=== PATIENT | female | born 1985 ===

== ENCOUNTER 2017-01-09 16:19 | Emergency (ER) | payer MEDICAID ==
[2017-01-09 16:35] VITALS: RESP 18
--- NOTE | 2017-01-09 18:05 | C.PDOC ---
History Of Present Illness 31 year old female presents to the ED with complaints of vaginal bleeding and lower abdominal pain since this morning that have reduced upon arrival to ED. Patient's LMP was 11/01/2016 and notes questionable care. She has used two pads today and denies back pain, fever dysuria, nausea, vomiting, or other complaints at this time. Time Seen by Provider: 01/09/17 17:16 Chief Complaint (Nursing): Female Genitourinary History Per: Patient History/Exam Limitations: no limitations Onset/Duration Of Symptoms: Hrs Current Symptoms Are (Timing): Still Present Quality Of Discomfort: "Pain" Associated Symptoms: denies: Fever, Chills, Nausea, Vomiting, Diarrhea, Back Pain, Urinary Symptoms Recent travel outside of the [place]: No Additional History Per: Prior Records Abnormal Vaginal Bleeding: Yes Last Menstral Period: 11/01/2016 Past Medical History Reviewed: Historical Data, Nursing Documentation, Vital Signs Vital Signs: Last Vital Signs Temp 98.4 F 01/09/17 16:33 Pulse 74 01/09/17 16:33 Resp 18 01/09/17 16:33 BP 122/70 01/09/17 16:33 Pulse Ox 95 01/09/17 18:55 Family History: States: Unknown Family Hx - Social History Hx Alcohol Use: No Hx Substance Use: No Review Of Systems Constitutional: Negative for: Fever, Chills Cardiovascular: Negative for: Chest Pain, Palpitations Respiratory: Negative for: Cough, Shortness of Breath Gastrointestinal: Positive for: Abdominal Pain. Negative for: Nausea, Vomiting , Diarrhea Genitourinary: Positive for: Vaginal Bleeding. Negative for: Dysuria, Hematuria Physical Exam - Physical Exam Appears: Non-toxic, No Acute Distress Skin: Warm, Dry Head: Atraumatic, Normacephalic Eye(s): bilateral: Normal Inspection, EOMI Oral Mucosa: Moist Throat: Normal Neck: Normal ROM, Supple Chest: Symmetrical, No Deformity Cardiovascular: Rhythm Regular, No Murmur Respiratory: Normal Breath Sounds, No Rales, No Rhonchi, No Stridor, No Wheezing Gastrointestinal/Abdominal: Bowel Sounds, Soft, No Tenderness Back: No CVA Tenderness Extremity: Normal ROM, No Tenderness, No Pedal Edema Neurological/Psych: Oriented x3, Normal Speech, Normal Cognition, Normal Motor, Normal Sensation ED Course And Treatment - Laboratory Results Result Diagrams: 01/09/17 18:13 08/18/17 18:13 O2 Sat by Pulse Oximetry: 95 (room air ) - CT Scan/US Transvaginal US Other Rad Studies (CT/US): Read By Radiologist, Radiology Report Reviewed CT/US Interpretation: IMPRESSION: Unremarkable pelvic ultrasound. No findings of intrauterine or ectopic gestation. Progress Note: Labs, UA, and US were performed. Medical Decision Making Medical Decision Making: plan is to check labs, ua. get transvaginal ultrasound and type and screen. 705 pm pt notified she is not , normal bhcg, normal us., no signs of . pt sts she was told she was at a clinic in [place] started on pills., pt unsure what occurred. will give pt all lab work and sono report to bring back to clinic. Disposition Counseled Patient/Family Regarding: Studies Performed, Diagnosis, Need For Followup - Disposition Referrals: at [facility] [Outside] Disposition: HOME/ ROUTINE Disposition Time: 19:10 Condition: STABLE Additional Instructions: Por favor, siga con [facility] cl[facility]ica en [place]; [place] [facility] trabajo de laboratorio y resultados de sonografa. Volver a ER para cualquier problema que empeora. Instructions: Dysfunctional Uterine Bleeding (ED), Menstruation (ED) Forms: Gen Discharge Inst Salvadorean, [facility] (Salvadorean) - Clinical Impression Clinical Impression: Vaginal bleeding - Scribe Statement The provider has reviewed the documentation as recorded by the Scribe Maryan Mariscal All medical record entries made by the Scribe were at my direction and personally dictated by me. I have reviewed the chart and agree that the record accurately reflects my personal performance of the history, physical exam, medical decision making, and the department course for this patient. I have also personally directed, reviewed, and agree with the discharge instructions and disposition.
[2017-01-09 18:19] LABS: EOS # 0.4 K/uL (0.0-0.7); HEMATOCRIT 35.9 % (34.0-47.0); LYMPH # 1.7 K/uL (1.0-4.3); LYMPH % 30.6 % (20.0-40.0); MEAN CELL VOLUME 80.5 fL (81.0-99.0); MEAN CORPUSCULAR HEMOGLOBIN 26.6 pg (27.0-31.0); MONO # 0.6 K/uL (0.0-0.8); MONO % 11.2 % (0.0-10.0); RED CELL DISTRIBUTION WIDTH 17.9 % (11.5-14.5); WHITE BLOOD COUNT 5.6 K/uL (4.8-10.8)
[2017-01-09 18:27] LABS: CHLORIDE 101 mmol/L (98-107); POTASSIUM 3.7 mmol/L (3.6-5.2); SODIUM 138 mmol/L (132-148)
[2017-01-09 18:29] LABS: BILIRUBIN,TOTAL 0.4 mg/dL (0.2-1.3); GFR AFRICAN-AMERICAN > 60
[2017-01-09 18:30] LABS: ALB/GLOB RATIO 1.2 (1.0-2.1); ALKALINE PHOSPHATASE 56 U/L (38-126); ALT/SGPT 42 U/L (9-52); AST/SGOT 29 U/L (14-36); BLOOD UREA NITROGEN 11 mg/dL (7-17); CARBON DIOXIDE 25 mmol/L (22-30); GLUCOSE,RANDOM 96 mg/dL (65-105); TOTAL PROTEIN 7.7 g/dL (6.3-8.3)
[2017-01-09 18:31] LABS: CALCIUM 9.3 mg/dl (8.6-10.4)
--- NOTE | 2017-01-09 18:43 | US ---
HISTORY: Vaginal bleeding and . LMP 11/01/2016 COMPARISON: None available. TECHNIQUE: Transabdominal, transvaginal. Real -time technique with 2D, duplex and color Doppler. FINDINGS: UTERUS: Measures 4.8 x 6.1 x 9.1 cm. Normal in size and appearance. No fibroid or other mass lesion seen. ENDOMETRIUM: Measures 9.4 mm in diameter. No ultrasound findings to suggest gestational sac, fluid, debris, mass or polyp or other pathologic process within the endometrium. CERVIX: No cervical abnormality identified. RIGHT OVARY: Measures 1.7 x 3 x 3.6 cm. No solid mass. Normal flow. LEFT OVARY: Measures 1.4 x 2.8 x 2.8 cm. No solid mass. Normal flow. FREE FLUID: No significant free fluid noted. OTHER FINDINGS: None. IMPRESSION: Unremarkable pelvic ultrasound. No findings of intrauterine or ectopic gestation.
[2017-01-09 19:18] LABS: RBC URINE 13 /hpf (0-3); URINE BACTERIA OCC (<OCC); URINE BILIRUBIN NEGATIVE (NEGATIVE); URINE BLOOD 3+ (NEGATIVE); URINE COLOR Straw (YELLOW); URINE GLUCOSE (UA) NORMAL (Normal); URINE KETONE NEGATIVE (NEGATIVE); URINE LEUKOCYTE ESTERASE NEG Leu/uL (Negative); URINE PROTEIN NEGATIVE (NEGATIVE); URINE UROBILINOGEN NORMAL mg/dL (0.2-1.0); WBC URINE 2 /hpf (0-5)
[2017-01-09 19:34] VITALS: BP 108/74; PULSE 67; TEMP 98.3
[2017-01-10 19:10] VITALS: O2SAT 95
== END 2017-01-09 19:25 | disposition home or self-care (01) ==
LOC: C.ER 16:19
DX: N93.9 Abnormal uterine and vaginal bleeding, unspecified (principal)